=== PATIENT | female | born 1970 | race Caucasian/White ===

== ENCOUNTER → 2016-06-29 | Outpatient (CLI) | payer SELFPAY | END | disposition disaster alternative care site (69) | LOC: GOPD 06-28 11:30 → GBCOE 09:19 → GONC 09:19 → GOPD 09:19 | PROC: 0HBT3ZX Excision of Right Breast, Percutaneous Approach, Diagnostic (ICD-10-PCS; principal; 2016-06-29) | DX: D24.2 Benign neoplasm of left breast (principal); N60.11 Diffuse cystic mastopathy of right breast; R92.0 Mammographic microcalcification found on diagnostic imaging of breast | CPT/HCPCS: J7050 ==